=== PATIENT | male | born 1945 | race Caucasian/White ===

== ENCOUNTER 2017-03-01 13:03 | Emergency (ER) | payer MEDICARE, OTHER ==
[2017-03-01 14:19] LABS: BASOPHILS 0.3 % (0.0-2.0); EOSINOPHILS 1.7 % (0-7); HEMATOCRIT 44.6 % (42.0-54.0); IMMATURE GRANULOCYTES 0.3 % (0-5); LYMPHOCYTES 28.7 % (15-50); MCH 30.2 pg (26.0-34.0); MCHC 33.6 g/dL (31.0-37.0); MCV 89.7 fL (80.0-100.0); MEAN PLATELET VOLUME 11.5 fL (7.4-10.4); MONOCYTES 9.7 % (2-11); NEUTROPHILS 59.3 % (40-80); PLATELET COUNT 122 10x3/uL (130-400); RBC 4.97 10x6/uL (4.20-6.10); RDW 12.8 % (11.5-14.5); WBC 8.8 10x3/uL (4.8-10.8)
[2017-03-01 14:31] LABS: INR 1.42 (0.85-1.17); PROTIME 17.2 SECONDS (11.6-15.0)
[2017-03-01 14:32] LABS: APTT 34.1 SECONDS (22.8-39.4)
[2017-03-01 14:41] LABS: ALBUMIN 4.6 g/dL (3.4-5.0); ANION GAP 15.4 mmol/L (8-16); BILIRUBIN - TOTAL 1.2 mg/dL (0.2-1.3); CALCIUM 9.4 mg/dL (8.5-10.1); CARBON DIOXIDE 28.1 mmol/L (21.0-32.0); CREATININE - SERUM 1.3 mg/dL (0.6-1.3); POTASSIUM - SERUM 4.5 mmol/L (3.5-5.1); PROTEIN - SERUM 8.5 g/dL (6.4-8.2)
[2017-03-02] MEDS ORDERED: VOLTAREN100 MG PO (03:02)
[2017-03-02] MEDS ORDERED: COZAAR25 MG PO (03:04)
[2017-03-02] MEDS ORDERED: TOPROL XL100 MG PO (03:05)
[2017-03-02] MEDS ORDERED: OMEPRAZOLE40 MG PO (03:05)
[2017-03-02] MEDS ORDERED: PRAVACHOL20 MG PO (03:06)
[2017-03-02] MEDS ORDERED: REQUIP3 MG PO (03:06)
[2017-03-02] MEDS ORDERED: KLONOPIN1 MG PO (03:08)
[2017-03-02] MEDS ORDERED: ULTRAM50 MG PO (03:08)
[2017-03-02] MEDS ORDERED: CARAFATE1 G PO (03:08)
[2017-03-02] MEDS ORDERED: NIASPAN500 MG PO (03:09)
[2017-03-02] MEDS ORDERED: BAYER CHEWABLE81 MG PO (03:09)
[2017-03-02] MEDS ORDERED: FISH OIL 1,0001 CA1 PO (03:11)
[2017-03-02] MEDS ORDERED: LUPRON IM (03:14)
[2017-03-02 09:45] VITALS: BMI 27.3
== END 2017-03-01 18:17 | disposition home or self-care (01) ==
LOC: D.ER 13:03 → D.ICU 23:27
PROVIDERS: Emergency Medicine
DX: G45.9 Transient cerebral ischemic attack, unspecified (principal)

== ENCOUNTER 2017-03-01 22:09 | Inpatient (IN) | payer MEDICARE, OTHER ==
[~2017-03-01] VITALS: Ht 190.5 cm; Wt 98.7 kg
[2017-03-01 23:37] LABS: INR 0.96 (0.85-1.17); PROTIME 12.7 SECONDS (11.6-15.0)
[2017-03-01 23:50] LABS: CALC OSMOLALITY 278 mosm/kg (275-300); CALCIUM 9.2 mg/dL (8.5-10.1); CARBON DIOXIDE 27.2 mmol/L (21.0-32.0); CHLORIDE - SERUM 102 mmol/L (98-107); CREATINE KINASE 76 UL (21-232); CREATININE - SERUM 1.2 mg/dL (0.6-1.3); GLUCOSE 94 mg/dL (74-106); MAGNESIUM - SERUM 2.2 mg/dL (1.8-2.4); PRO BNP 456 pg/mL (0-125); SODIUM 139 mmol/L (136-145); UREA NITROGEN 15 mg/dL (7-18); eGFR NON AFRICAN AMERICAN 63 mL/min (90-120)
[2017-03-01 23:54] LABS: POTASSIUM - SERUM 3.8 mmol/L (3.5-5.1); TROPONIN-I < 0.017 ng/mL (0.000-0.060)
[2017-03-02] VITALS (51 sets, daily range): BP systolic 131–181; BP diastolic 65–99; Ht 190.5 cm; Wt 98.7 kg
--- NOTE | 2017-03-02 02:20 | NUR ---
PT RECEIVED TO ROOM 2309 FROM ER VIA BED ACCOMPANIED BY HOSPITAL STAFF AND FAMILY. PT ABLE TO TRANSFER SELF TO ICU BED WITH MINIMAL ASSISTANCE. NOTE SMILE SYMETRICAL, TONGUE MIDLINE, MEDICAL BILLER/CODER STRONG AND EQUAL PLANTAR FLEXION AND EXTENSION EQUAL AND STRONG. PT NOTED ONLY TO HAVE DEFICIT IN COMMUNICATION. SPEECH IS CLEAR BUT PATIENT FORGETFUL OF THINGS THAT HE SHOULD BE ABLE TO EASILY RECALL. PT HAVING TROUBLE WITH BOTH SENIOR LIVING AND SHORT TERM MEMORY. UNABLE TO OBTAIN HISTORY FROM PATIENT WHO BECAME FRUSTRATED. HISTORY TAKEN IN LARGE PORTION FROM IN PATIENT'S PRESENCE. PT CONNECTED TO STANDARD ICU MONITORING AND ALL ALARMS SET. PT NOTED TO BE ON A HEPARIN GTT 1000U/HR AND NIPRIDE GTT 0.2MCG/KG/MIN TO A RIGHT FOREARM 20G PIV. ATTEMPTED X 6 BY 3 SEPARATE NURSES TO OBTAIN ANOTHER IV SITE WITHOUT SUCCESS. MEDICATIONS SEPARTATED BY 3 PRONG EXTENSION SET AND WILL SEEK FOR ALTERNATIVE OPTIONS IN THE DAY. WAS TOLD VERBALLY BY SHAWN PEREZ FROM ER THAT DR. MARX HAS BEEN CONSULTED AND DR. ROCHE DID SPEAK WITH HIM. DR. MARX WAS REPORTED TO HAVE ORDERED A HEPARIN BOLUS OF 5,000 UNITS AND THE GTT THAT IS CURRENTLY RUNNING AND WAS INITIATED ON 03/01/17 AT 2345.
[2017-03-02] MEDS ORDERED: VOLTAREN100 MG PO (03:02)
[2017-03-02] MEDS ORDERED: COZAAR25 MG PO (03:04)
[2017-03-02] MEDS ORDERED: TOPROL XL100 MG PO (03:05)
[2017-03-02] MEDS ORDERED: OMEPRAZOLE40 MG PO (03:05)
[2017-03-02] MEDS ORDERED: PRAVACHOL20 MG PO (03:06)
[2017-03-02] MEDS ORDERED: REQUIP3 MG PO (03:06)
[2017-03-02] MEDS ORDERED: ULTRAM50 MG PO (03:08)
[2017-03-02] MEDS ORDERED: CARAFATE1 G PO (03:08)
[2017-03-02] MEDS ORDERED: KLONOPIN1 MG PO (03:08)
[2017-03-02] MEDS ORDERED: NIASPAN500 MG PO (03:09)
[2017-03-02] MEDS ORDERED: BAYER CHEWABLE81 MG PO (03:09)
[2017-03-02] MEDS ORDERED: FISH OIL 1,0001 CA1 PO (03:11)
[2017-03-02] MEDS ORDERED: LUPRON IM (03:14)
--- NOTE | 2017-03-02 04:00 | NUR ---
TITRATING NIPRIDE DOCUMENTED ON IVF FLOWSHEET. PT SLEEPING AT THIS TIME
--- NOTE | 2017-03-02 11:14 | NUR ---
Patient Name: JAYMIE Alvarez OTT Admission Status: ER Accout number: [id number] Admission Date: 03-01-2017 : 1945 Admission Diagnosis: Attending: ILIANA Current LOS: 1 Anticipated DC Date: 03-07-2017 Planned Disposition: Home Primary Insurance: MEDICARE A & B Discharge Planning Comments: CM MET WITH PATIENT REGARDING D/C NEEDS AND PLANS. PATIENT STATED HE LIVES WITH HIS AND SHE WILL DRIVE HIM HOME AT DISCHARGE. PATIENT STATED THERE ARE ABOUT 12-13 STEPS W/RAILS TO ENTER HOME AND NO STAIRS INSIDE. PATIENT STATED HE IS INDEPENDENT WITH HIS CARE AND HAS A CANE, SHOWER BENCH, AND C-PAP AT HOME. PATIENT STATED HE QUIT HIS C-PAP A FEW MONTHS AGO BECAUSE IT WAS BOTHERING HIS NOSE. PATIENTS PCP IS DR. SCOTT AND HE USES [facility] [address] FOR HIS PHARMACY. PATIENT STATED HE HAS NEVER HAD HOME HEALTH AND DOES NOT THINK HE WILL NEED IT AT DISCHARGE. CM WILL CONTINUE TO FOLLOW PATIENT WITH D/C NEEDS AND PLANS. PCP DR. SCOTT [facility] [address] [facility] [phone] TOMMIE () [phone] SURAJ (DAUGHTER) [phone] Process Control Specialist: Ivania Trujillo Is the patient Alert and Oriented? Yes 0 * How many steps to enter\exit or inside your home? 12-13 RAIL 0 * PCP DR. SCOTT 0 * Pharmacy [facility] [address] 0 * Preadmission Environment Home with Family 0 * ADLs Independent 0 * Equipment Cane CPAP Shower Chair 0 * List name and contact numbers for known caregivers / representatives who currently or will assist patient after discharge: TOMMIE () [phone] SURAJ (DAUGHTER) [phone] 0 * Community resources currently utilized None 0 * Additional services required to return to the preadmission environment? Yes 0 * Can the patient safely return to the preadmission environment? Yes 0 * Has this patient been hospitalized within the prior 30 days at any hospital? No 0 Grand Total: 0
--- NOTE | 2017-03-02 19:45 | NUR ---
ASSESSMENT COMPLETE. S1S2. RR CLEAR, EQUAL, BILATERALLY. BP ELEVATED; ON NIPRIDE ORDERS TO TITRATE. SEE EMAR AND ORDERS FOR DETAILS. RT FOREARM PIV; PATENT. ALERT AND ORIENTED. ANSWERS QUESTIONS APPROPRIATELY; OBEYS COMMANDS. RADIAL AND PEDAL PULSES PALPATED. PERRLA. WILL CONTINUE TO MONITOR.
--- NOTE | 2017-03-02 20:10 | NUR ---
DR. HART AT BEDSIDE. UPDATE GIVEN.
--- NOTE | 2017-03-02 21:15 | NUR ---
FAMILY AT BEDSIDE; UPDATE GIVEN. QUESTIONS ANSWERED
--- NOTE | 2017-03-02 21:30 | NUR ---
PT C/O PAIN; HEAD. PRN MORPHINE GIVEN PER ORDERS. SEE EMAR FOR DETAILS.
--- NOTE | 2017-03-02 23:15 | NUR ---
REASSESSMENT COMPLETE. NO CHANGES FROM PREVIOUS ASSESSMENT. WILL CONTINUE TO MONITOR.
[2017-03-03] VITALS (66 sets, daily range): BP systolic 113–187; BP diastolic 70–104
--- NOTE | 2017-03-03 01:30 | NUR ---
PT RESTING; EYES CLOSED. NO DISTRESS NOTED. VSS. CALL LIGHT IN REACH. WILL CONTINUE TO MONITOR.
--- NOTE | 2017-03-03 03:10 | NUR ---
REASSESSMENT COMPLETE. NO CHANGES FROM PREVIOUS ASSESSMENT. CALL LIGHT IN REACH. WILL CONTINUE TO MONITOR. VSS. NO DISTRESS NOTED.
--- NOTE | 2017-03-03 06:28 | NUR ---
FAMILY AT BEDSIDE; UPDATE GIVEN.
--- NOTE | 2017-03-03 08:00 | NUR ---
SHIFT ASSESSMENT VIA FLOWSHEET, SEE FOR DETAILS.
--- NOTE | 2017-03-03 11:00 | NUR ---
REASSESSMENT VIA FLOWSHEET SEE FOR DETAILS.
--- NOTE | 2017-03-03 11:49 | NUR ---
SPOKE WITH KEVIN BAGLEY NEW ORDERS RECEIVED AND STATES SHE WILL REVIEW HOME MED LIST.
--- NOTE | 2017-03-03 12:05 | NUR ---
PT TO CT VIA BED.
[2017-03-03] MEDS ORDERED: MIRALAX17 GM PO (12:45)
[2017-03-03 13:29] LABS: BASOPHILS 0.3 % (0.0-2.0); EOSINOPHILS 1.7 % (0-7); HEMATOCRIT 39.1 % (42.0-54.0); IMMATURE GRANULOCYTES 0.2 % (0-5); LYMPHOCYTES 31.6 % (15-50); MCHC 33.2 g/dL (31.0-37.0); MCV 90.1 fL (80.0-100.0); MEAN PLATELET VOLUME 12.8 fL (7.4-10.4); MONOCYTES 9.1 % (2-11); NEUTROPHILS 57.1 % (40-80); RBC 4.34 10x6/uL (4.20-6.10); RDW 13.1 % (11.5-14.5)
[2017-03-03 13:39] LABS: ALKALINE PHOSPHATASE 36 U/L (46-116); ALT (SGPT) 30 U/L (10-68); BILIRUBIN - TOTAL 0.77 mg/dL (0.2-1.3); CHLORIDE - SERUM 103 mmol/L (98-107); GLUCOSE 138 mg/dL (74-106); POTASSIUM - SERUM 3.9 mmol/L (3.5-5.1); PROTEIN - SERUM 7.2 g/dL (6.4-8.2); SODIUM 138 mmol/L (136-145); eGFR NON AFRICAN AMERICAN 78 mL/min (90-120)
[2017-03-03 13:42] LABS: CALC OSMOLALITY 276 mosm/kg (275-300); UREA NITROGEN 10 mg/dL (7-18)
[2017-03-03 13:43] LABS: PLATELET COUNT 199 10x3/uL (130-400)
--- NOTE | 2017-03-03 15:00 | NUR ---
REASSESSMENT VIA FLOWSHEET, SEE FOR DETAILS.
--- NOTE | 2017-03-03 17:40 | NUR ---
SPOKE WITH SAJAN IN LAB REGARDING PTT DRAW. REQUESTED NEW DRAW BE COMPLETED FROM LEFT ARM VS. RIGHT ARM (WHERE HEPARIN INFUSING) FOR VERIFICATION OF LAB VALUE.
--- NOTE | 2017-03-03 19:15 | NUR ---
SHIFT ASSESSSMENT COMPLETE, A&O X4, ANSWERS QUESTIONS APPROPRIATELY. FOLLOWS COMMANDS, CREEL CLEANER HANDS, EVEN BILATERAL. STRONG SEEING EYE DOG TEACHER, STRENGTH IN ARMS AND LEGS 5/5. PUPILS ARE PERRLA, WILL FOLLOW PEN LIGHT. NO FACIAL DROOPING, NO SENSORY ISSUES. S1S2 NOTED. LUNG SOUNDS CLEAR, RR EVEN AND DEEP. PULSES +2 BILATERAL. VSS, WILL MONITOR.
--- NOTE | 2017-03-03 20:00 | NUR ---
NIGHT MEDS GIVEN WITHOUT DIFFICULTY.
--- NOTE | 2017-03-03 21:00 | NUR ---
FAMILY AT BEDSIDE, DENY NEED AT THIS TIME.
--- NOTE | 2017-03-03 23:00 | NUR ---
REASSESSMENT COMPLETE. NO CHANGES FROM PREVIOUS ASSESSMENT. FACE SYMMETRICAL, STRENGTH 5/5 IN EXTREM. STRONG, EVEN GEAR HOBBER SET UP OPERATOR. CLEAR SPEECH AND IS A&O. VSS, WILL MONITOR.
[2017-03-04] VITALS (14 sets, daily range): BP systolic 126–164; BP diastolic 69–88
--- NOTE | 2017-03-04 01:10 | NUR ---
PATIENT RESTING IN BED WITH EYES CLOSED, VSS.
--- NOTE | 2017-03-04 04:15 | NUR ---
REASSESSMENT COMPLETE PER FLOWSHEET, SEE FOR DETAILS. VSS, DENIES NEED. CL IN REACH.
--- NOTE | 2017-03-04 04:15 | NUR ---
PATIENT STATES HE "IS HAVING A DOWN MOMENT" REQUESTED THAT HIS COME IN IF POSSIBLE. WENT TO WAITING ROOM TO GET AT THIS TIME.
--- NOTE | 2017-03-04 06:19 | NUR ---
FAMILY AT BEDSIDE, LAB DRAWN AT THIS TIME. PT DENIES NEED.
[2017-03-04 06:32] LABS: BASOPHILS 0.4 % (0.0-2.0); EOSINOPHILS 1.2 % (0-7); HEMATOCRIT 41.5 % (42.0-54.0); IMMATURE GRANULOCYTES 0.3 % (0-5); MCHC 33.7 g/dL (31.0-37.0); MCV 89.1 fL (80.0-100.0); MEAN PLATELET VOLUME 11.7 fL (7.4-10.4); MONOCYTES 10.2 % (2-11); NEUTROPHILS 59.9 % (40-80); PLATELET COUNT 221 10x3/uL (130-400); RBC 4.66 10x6/uL (4.20-6.10); RDW 13.1 % (11.5-14.5)
[2017-03-04 06:33] LABS: WBC 11.4 10x3/uL (4.8-10.8)
[2017-03-04 06:57] LABS: ALKALINE PHOSPHATASE 36 U/L (46-116); ALT (SGPT) 34 U/L (10-68); BILIRUBIN - TOTAL 1.04 mg/dL (0.2-1.3); CALC OSMOLALITY 270 mosm/kg (275-300); CALCIUM 9.2 mg/dL (8.5-10.1); CARBON DIOXIDE 23.1 mmol/L (21.0-32.0); CHLORIDE - SERUM 100 mmol/L (98-107); GLUCOSE 140 mg/dL (74-106); POTASSIUM - SERUM 4.1 mmol/L (3.5-5.1); PROTEIN - SERUM 7.8 g/dL (6.4-8.2); SODIUM 135 mmol/L (136-145); UREA NITROGEN 11 mg/dL (7-18); eGFR NON AFRICAN AMERICAN 78 mL/min (90-120)
--- NOTE | 2017-03-04 08:09 | NUR ---
FAMILY IN ROOM VISITING WITH DR MARX AT THIS TIME. UPDATE GIVEN. NO ACUTE DISTRESS NOTED. WILL CONTINUE PLAN OF CARE.
--- NOTE | 2017-03-04 08:13 | NUR ---
UP IN BED EATING BREAKFAST AT THIS TIME. NO ACUTE DISTRESS NOTED. PT ALERT AND ORIENTED. WILL CONTINUE PLAN OF CARE.
--- NOTE | 2017-03-04 10:33 | NUR ---
UP IN BED AWAKE AT THIS TIME VISITING WITH FAMILY. NO ACUTE DISTRESS NOTED. WILL CONTINUE PLAN OF CARE.
[2017-03-04] MEDS ORDERED: ASPIRIN325 MG PO (11:18)
[2017-03-04] MEDS ORDERED: CATAPRES0.1 MG PO (11:21)
--- NOTE | 2017-03-04 12:38 | NUR ---
UP IN BED EATING LUNCH AT THIS TIME AND VISITING WITH FAMILY. NO ACUTE DISTRESS NOTED. NOTED PT HAS ORDER TO BE DISCHARGED IF HE DOES WELL WITH PHYSICAL THERAPY. PT AND PTS AWARE. WILL CONTINUE PLAN OF CARE.
--- NOTE | 2017-03-04 13:36 | NUR ---
WALKING IN HALLWAY WITH CANE ASSIST FROM PHYSICAL THERAPY. NO ACUTE DISTRESS NOTED. WILL CONTINUE PLAN OF CARE.
--- NOTE | 2017-03-04 14:19 | NUR ---
NOTED PT TO BE DISCHARGED. SPOKE WITH PHYSICAL THERAPY AND NOTED THEY HAVE OKAYED PT FOR DISCHARGE WELL. PHYSICAL THERAPY WAS ASKED TO EVAL PT BY DR SANDERSON BEFORE DISCHARGE AND IF THEY APPROVE PT THEN PT CAN BE DISCHARGED. CALLED TO PTS PHARMACY AT [facility] AT TO SEE IF THEY HAVE RECVIEVED NEW ORDER FOR ASPIRIN AND CATAPRESS. NOTED PHARMACY STATED THEY HAVE RECIEVED NEW ORDER FOR CATAPRESS BUT HAVE NOT YET RECIEVED ORDER FOR ASPIRIN BUT PT CAN GET MED OVER THE COUNTER IF NEEDED. NO ACUTE DISTRESS NOTED. WILL CONTINUE PLAN OF CARE.
--- NOTE | 2017-03-04 14:46 | NUR ---
NOTED PT ORDER TO BE DISCHARGED TODAY. MEDS HAD BEEN ORDERED THROUGH [facility] MA[facility]IV[facility] LISTED PT PRIMARY PHARMACY. WHEN SPEAKING WITH PT AND PTS ABOUT NEW MEDS SUCH ASPIRIN AND CLONIDINE HCL PT AND PTS STATED CONCERNS THAT THEY WILL NOT RECIEVE ORDER FOR ABOUT TWO WEEKS CONSIDERING THAT THEY USE A MAIL DELIVERY PHARMACY AND REQUESTED FOR THE CLONIDINE HCL TO BE CALLED INTO [facility] [address] AT [phone]. AT THIS TIME CALLED DR SANDERSON TO SEE IF IT WOULD BE OKAY FOR THIS NURSE TO CALL MED IN TO [facility] PER PT AND PTS REQUEST. WAITING FOR CALLBACK. WILL CONTINUE PLAN OF CARE.
--- NOTE | 2017-03-04 15:05 | NUR ---
DR SANDERSON IN HOSPITAL, WROTE SCRIPT FOR CLONIDINE. SCRIPT GIVEN TO PT. NO ACUTE DISTRESS NOTED. WILL CONTINUE PLAN FO CARE.
--- NOTE | 2017-03-04 15:08 | NUR ---
ALL DISCHARGE PAPERWORK SIGNED BY PT. PT DENIES ANY QUESTIONS OR CONCERNS. IS AWARE OF FOLLOWUP APPOINTMENTS AND HOME HEALTH. IVS TO RIGHT FOREARM AND LEFT WRIST DC AT THIS TIME, CATHETER TIP IN TACT. WILL CONTINUE PLAN OF CARE.
--- NOTE | 2017-03-04 15:21 | NUR ---
DISCHARGED AT THIS TIME. LEFT HOSPITAL VIA PERSONAL VEHICLE WITH VIA WHEELCHAIR ACCOMPANIED BY NURSING STAFF. LEFT WITH ALLL PERSONAL ITEMS, DISCHARGE PAPERWORK, SCRIPT. NO ACUTE DISTRESS NOTED. NO FURTHER ACTIONS.
--- NOTE | 2017-03-11 12:24 | EC ---
PATIENT:JAYMIE OTT DATE OF SERVICE: 03/01/17 SEX: M MEDICAL RECORD: [id number] DATE OF : [birth year] LOCATION:[facility] D230 AGE OF PATIENT: 72 ADMISSION DATE: 03/01/17 REFERRING PHYSICIAN: INTERPRETING PHYSICIAN: THOM HORN M.D. ECHOCARDIOGRAM REPORT ECHO CHARGES 4 ECHO COMPLETE CLINICAL DIAGNOSIS: CVA/LEFT MCA TIA ECHOCARDIOGRAPHIC MEASUREMENTS (adult normal given) AC root (d.<3.7cm) 2.8 LV Septum d (<1.2 cm> 1.7 Valve Excursion 1.5 LV Septum (systole) 2.0 Left Atria (s.<4.0cm> 3.5 LVPW d(<1.2cm) 1.5 RV (d.<2.3cm) 2.6 LVPW (sytole) 2.4 LV diastole(<5.6CM) 5.4 MV E-F(>70mm/sec) LV systole 3.0 LVOT Diameter 1.8 MV exc.(>10mm) Est.ejection fraction (50-75%) Pericardial Effusion N DOPPLER: LVIT A 95.0 E 71.0 LA RVSP 28.4 LVOT 154 AOP1/2T Asc. Ao 223 RVOT 110 RA PA 151 AV Gradient Peak 20.0 AV Mean 10.3 AV Area 1.5 MV Gradient Peak 10.4 MV Mean 2.7 MV Area COMMENTS: Waiter/Waitress Cafeteria: Yumiko MANRIQUEZOE Shove Up:Brandon Horn TAPE# PACS DATE OF SERVICE: 03/02/2017 REFERRING PHYSICIAN: Teresita Galicia MD INDICATION: CVA. DESCRIPTION: Left ventricle demonstrates left ventricular hypertrophy. No wall motion abnormalities are seen. Estimated ejection fraction is 60%. There is no evidence of any massive thrombus left ventricle apex. Mitral valve is structurally normal. There is trivial regurgitation seen. Left atrium is ECHOCARDIOGRAM REPORT [id number] JAYMIE OTT normal size. The aortic valve is trileaflet. Leaflets are thickened. Peak gradient across the valve is 20 mmHg with a mean of 10 mmHg. There is no evidence of insufficiency. Right ventricle is mildly dilated. Tricuspid valve is structurally normal. There is trivial regurgitation seen. Right atrium is normal size. There is no pericardial effusion noted. IMPRESSION: 1. Left ventricular hypertrophy with preserved ejection of 60%. 2. Trivial mitral regurgitation. 3. Mild aortic stenosis. 4. No evidence of atrial septal defect, ventricular septal defect or patent foramen ovale. TRANSINT:[id number] Voice Confirmation ID: [id number] DOCUMENT ID: [id number] THOM HORN M.D. at 1224 CC: [id number] DICTATION DATE: 03/02/17 1632 PUBLIC ADMINISTRATION TEACHER: 03/03/17 0040 DIS IN 03/04/17 [place] [id number] [place] [id number]
== END 2017-03-04 15:31 | disposition home or self-care (01) | DRG 69 ==
LOC: D.ER 22:09 → D.ICU 23:27
PROVIDERS: Emergency Medicine; ADMIT Family Medicine
DX: G45.9 Transient cerebral ischemic attack, unspecified (principal); I10 Essential (primary) hypertension; E78.5 Hyperlipidemia, unspecified; K21.9 Gastro-esophageal reflux disease without esophagitis; R40.2143 Coma scale, eyes open, spontaneous, at hospital admission; R40.2363 Coma scale, best motor response, obeys commands, at hospital admission; R40.2253 Coma scale, best verbal response, oriented, at hospital admission; Z87.891 Personal history of nicotine dependence; C61 Malignant neoplasm of prostate; R51 Headache

== ENCOUNTER 2017-04-02 11:38 | Inpatient (IN) | payer MEDICARE, OTHER ==
[~2017-04-02] VITALS: Ht 190.5 cm; Wt 81.8 kg
[~2017-04-02 11:38] MED LIST: ASPIRIN325 MG PO; BAYER CHEWABLE81 MG PO; CARAFATE1 G PO; CATAPRES0.1 MG PO; COZAAR25 MG PO; FISH OIL 1,0001 CA1 PO; KLONOPIN1 MG PO; LUPRON IM; MIRALAX17 GM PO; NIASPAN500 MG PO; OMEPRAZOLE40 MG PO; PRAVACHOL20 MG PO; REQUIP3 MG PO; TOPROL XL100 MG PO; ULTRAM50 MG PO; VOLTAREN100 MG PO
[2017-04-02 12:11] LABS: BASOPHILS 0.4 % (0-2); EOSINOPHILS 3.5 % (0-7); HEMATOCRIT 37.1 % (42.0-54.0); HEMOGLOBIN 12.6 g/dL (13.5-17.5); IMMATURE GRANULOCYTES 0.4 % (0-5); MCH 29.7 pg (26.0-34.0); MCV 87.5 fL (80.0-100.0); MEAN PLATELET VOLUME 10.6 fL (7.4-10.4); MONOCYTES 7.9 % (2-11); NEUTROPHILS 66.8 % (40-80); PLATELET COUNT 202 10x3/uL (130-400); RBC 4.24 10x6/uL (4.20-6.10); RDW 12.6 % (11.5-14.5); WBC 7.3 10x3/uL (4.8-10.8)
[2017-04-02 12:26] LABS: APTT 28.7 SECONDS (22.8-39.4); INR 0.97 (0.85-1.17); PROTIME 12.7 SECONDS (11.6-15.0)
[2017-04-02 12:31] LABS: ALBUMIN 3.8 g/dL (3.4-5.0); ANION GAP 10.9 mmol/L (8-16); BILIRUBIN - TOTAL 0.83 mg/dL (0.2-1.3); CALCIUM 9.1 mg/dL (8.5-10.1); CREATININE - SERUM 1.3 mg/dL (0.6-1.3); POTASSIUM - SERUM 3.9 mmol/L (3.5-5.1); PROTEIN - SERUM 7.4 g/dL (6.4-8.2)
--- NOTE | 2017-04-02 14:19 | NUR ---
RECEIVED TO ROOM 2217 FROM ER. CALL LIGHT IN REACH.
[2017-04-02 14:43] VITALS: BP 170/74
[2017-04-02] MEDS ORDERED: BAYER CHEWABLE81 MG PO (14:48)
[2017-04-02] MEDS ORDERED: PLAVIX75 MG PO (14:51)
[2017-04-02] MEDS ORDERED: CENTRUM SILVER1 TA1 PO (14:52)
--- NOTE | 2017-04-02 14:54 | NUR ---
HISTORY AND MED REC REVIEWED. PASSWORD AND EMERGENCY CONTACT INFO OBTAINED. DR. SESAY AND ALCIRA HAVE ALREADY BEEN IN ROOM TO SEE PATIENT.
--- NOTE | 2017-04-02 15:52 | NUR ---
SPOKE WITH ABOUT BRINGING PATIENT'S DICLOFENAC FROM HOME D/T PHARMACY UNABLE TO OBTAIN IT. VERBALIZED UNDERSTANDING.
[2017-04-02 16:10] LABS: % SATURATION 20 % (15-55); IRON 73 ug/dl (35-150); TOTAL IRON BIND CAPACITY 354 ug/dl (260-445); UNSAT IRON BIND CAPACITY 281 ug/dl (150-375)
--- NOTE | 2017-04-02 16:26 | NUR ---
CARAFATE AND NORVASC PO. WEANED TO ROOM AIR. WILL HAVE OFFICER LIEUTENANT RECHECK VS.
--- NOTE | 2017-04-02 17:50 | NUR ---
TYLENOL PO PER C/O HEADACHE. BP 154/70 MANUALLY. IN ROOM. CALL LIGHT IN REACH.
--- NOTE | 2017-04-02 18:05 | NUR ---
[place] HAT PLACED IN BR FOR STOOL SAMPLE. SCDs TO BLE. IN ROOM. CALL LIGHT IN REACH. WILL CONTINUE WITH PLAN OF CARE.
[2017-04-02 19:02] VITALS: BP 130/82; Ht 190.5 cm; Wt 81.8 kg
[2017-04-02 20:00] VITALS: BP 139/79
--- NOTE | 2017-04-03 03:35 | NUR ---
PT. IN BED WITH HOB UP FOR COMFORT. AWAKENS EASILY I ENTERED ROOM. FEMALE VISITOR STAYING WITH PT, IV HEPARIN IFUSING VIA PUMP WITHOUT ALARMS. NO VOICED COMPLAINTS AND CALL LIGHT IS WITHIN REACH,.
[2017-04-03 04:00] VITALS: BP 169/82
[2017-04-03 05:40] LABS: BASOPHILS 0.8 % (0-2); EOSINOPHILS 4.9 % (0-7); HEMATOCRIT 36.7 % (42.0-54.0); HEMOGLOBIN 12.2 g/dL (13.5-17.5); IMMATURE GRANULOCYTES 0.2 % (0-5); LYMPHOCYTES 33.6 % (15-50); MCH 29.1 pg (26.0-34.0); MCHC 33.2 g/dL (31.0-37.0); MCV 87.6 fL (80.0-100.0); MEAN PLATELET VOLUME 11.2 fL (7.4-10.4); MONOCYTES 11.8 % (2-11); NEUTROPHILS 48.7 % (40-80); PLATELET COUNT 178 10x3/uL (130-400); RBC 4.19 10x6/uL (4.20-6.10); RDW 12.6 % (11.5-14.5); WBC 6.1 10x3/uL (4.8-10.8)
[2017-04-03 06:04] LABS: ALBUMIN 3.5 g/dL (3.4-5.0); ANION GAP 10.7 mmol/L (8-16); BILIRUBIN - TOTAL 0.9 mg/dL (0.2-1.3); CALCIUM 9.2 mg/dL (8.5-10.1); CARBON DIOXIDE 28.9 mmol/L (21.0-32.0); CREATININE - SERUM 1.1 mg/dL (0.6-1.3); POTASSIUM - SERUM 3.6 mmol/L (3.5-5.1); PROTEIN - SERUM 6.9 g/dL (6.4-8.2)
[2017-04-03 07:00] VITALS: BP 172/89
--- NOTE | 2017-04-03 08:14 | NUR ---
CALLED ASKED HIM ABOUT THE PLAVIX SINCE PATIENT IS ON HEPARIN DRIP, HE STATED "DO NOT GIVE IT RIGHT NOW WITH THE DRIP GOING. I WILL ADDRESS IT WHEN I GET THERE."
--- NOTE | 2017-04-03 11:00 | NUR ---
IN ROOM, HE STATED "STOP THE HEPARIN DRIP. GIVE THE PLAVIX, AND I AM GOING TO GO PUT IN A DISCHARGE ORDER." TURNED OFF THE HEPARIN DRIP.
[2017-04-03 11:06] VITALS: BP 153/83
--- NOTE | 2017-04-03 11:25 | NUR ---
PATIENT IS AWAKE, ALERT AND ORIENTED X'S 4. RESPIRATIONS ARE EVEN AND UNLABORED ON ROOM AIR. IS AMBULATING WITH PATIENT IN THE [place]UH[place], PATIENT IS AMBULATING INDEPENDENTLY USING CANE. GAIT STEADY. SPEECH CLEAR.
--- NOTE | 2017-04-03 11:41 | NUR ---
DIAGNOSIS IS SUSPECTED TIA. PATIENT BEING DISDCHARGED BACK HOME. CURRENT DISCHARGE MEDICATIONS INCLUDE PLAVIX & ASPIRIN. NO LDL DRAWN FOR STATIN INDICATOR. WRITTEN INSTRUCTION GIVEN FOR STROKE SYMPTOMS AND DIRECTIN FOR SEEKING MEDICAL ATTN.
--- NOTE | 2017-04-03 12:00 | NUR ---
DISCHARGE INSTRUCTIONS COMPLETED WITH PATIENT AND PATIENT'S . BOTH DENY QUESTIONS AND VERBALIZED UNDERSTANDING. D/C IV FROM LEFT CHEST WITH CATHETER INTACT. HELD PRESSURE UNTIL BLEEDING STOPPED. TOOK PATIENT OUT VIA WHEELCHAIR. STAYED WITH PATIENT UNTIL HE GOT INSIDE 'S VEHICLE.
== END 2017-04-03 12:07 | disposition home or self-care (01) | DRG 69 ==
LOC: D.ER 11:38 → D.MS 13:50
PROVIDERS: Emergency Medicine; ADMIT Family Medicine Adult Medicine
DX: G45.9 Transient cerebral ischemic attack, unspecified (principal); D64.9 Anemia, unspecified; I10 Essential (primary) hypertension; K21.9 Gastro-esophageal reflux disease without esophagitis; Z86.73 Personal history of transient ischemic attack (TIA), and cerebral infarction without residual deficits; G47.30 Sleep apnea, unspecified; R53.1 Weakness

== ENCOUNTER 2017-04-02 13:00 | Outpatient (CLI) | payer MEDICARE, OTHER ==
[2017-04-02] MEDS ORDERED: BAYER CHEWABLE81 MG PO (14:48)
[2017-04-02] MEDS ORDERED: PLAVIX75 MG PO (14:51)
[2017-04-02] MEDS ORDERED: CENTRUM SILVER1 TA1 PO (14:52)
[2017-04-02 19:02] VITALS: BMI 22.5
== END 2017-04-03 18:00 | disposition home or self-care (01) ==
LOC: D.OPS 13:00
DX: G45.9 Transient cerebral ischemic attack, unspecified (principal); I10 Essential (primary) hypertension; K21.9 Gastro-esophageal reflux disease without esophagitis; D64.9 Anemia, unspecified

== ENCOUNTER 2017-05-21 18:16 | Observation (INO) | payer MEDICARE, OTHER ==
[2017-04-02 19:02] VITALS: Wt 99.2 kg
[~2017-05-21 18:16] MED LIST changes: +CENTRUM SILVER1 TA1 PO; +PLAVIX75 MG PO
[2017-05-21 18:48] LABS: BASOPHILS 0.1 % (0-2); EOSINOPHILS 1.4 % (0-7); HEMOGLOBIN 13.1 g/dL (13.5-17.5); IMMATURE GRANULOCYTES 0.4 % (0-5); LYMPHOCYTES 31.4 % (15-50); MCHC 34.5 g/dL (31.0-37.0); MEAN PLATELET VOLUME 11.1 fL (7.4-10.4); MONOCYTES 11.7 % (2-11); PLATELET COUNT 198 10x3/uL (130-400); RBC 4.37 10x6/uL (4.20-6.10); RDW 12.7 % (11.5-14.5); WBC 7.7 10x3/uL (4.8-10.8)
[2017-05-21 19:04] LABS: APTT 28.6 SECONDS (22.8-39.4); INR 0.99 (0.85-1.17); PROTIME 12.9 SECONDS (11.6-15.0)
[2017-05-21 19:09] LABS: ALBUMIN 4.1 g/dL (3.4-5.0); ALKALINE PHOSPHATASE 45 U/L (46-116); ALT (SGPT) 27 U/L (10-68); BILIRUBIN - TOTAL 0.96 mg/dL (0.2-1.3); CALC OSMOLALITY 258 mosm/kg (275-300); CALCIUM 9.8 mg/dL (8.5-10.1); CARBON DIOXIDE 28.8 mmol/L (21.0-32.0); CHLORIDE - SERUM 92 mmol/L (98-107); CREATININE - SERUM 1.3 mg/dL (0.6-1.3); GLUCOSE 125 mg/dL (74-106); POTASSIUM - SERUM 4.3 mmol/L (3.5-5.1); PROTEIN - SERUM 7.9 g/dL (6.4-8.2); SODIUM 128 mmol/L (136-145); UREA NITROGEN 14 mg/dL (7-18); eGFR NON AFRICAN AMERICAN 58 mL/min (90-120)
[2017-05-21 19:22] LABS: TROPONIN-I < 0.017 ng/mL (0.000-0.060)
--- NOTE | 2017-05-21 22:25 | NUR ---
PT ARRIVED TO FLOOR VIA STREACHER WITH STAFF AND SPOUSE. IV TO LEFT WRIST SALINE LOCKED. PT ASSISTED WITH MOVING TO BED. PT IS TRING TO ASK QUESTIONS BUT UNABLE TO GET APPROIATE WORDS TO COME OUT, SO GETTING A LITTLE UPSET. B/P 215/73 TOLD WILL GIVE HIM A LITTLE TIME AND RETAKE SINCE IT COULD BE BECAUSE OF BEING UPSET. DID PT HISTORY WITH . GOT CHAIR FOR TO STAY IN ROOM. WILL CONT TO MONITOR.
--- NOTE | 2017-05-21 23:15 | NUR ---
PT C/O BAD HEADACHE. WAS REPORTED TO HAVE GOTTEN TYLENOL IN ER AT 2044. NOTIFIED HOUSE SUPERVISIOR THAT INCREASE B/P AND HEADACH WITH NO PRN MEDS
[2017-05-22] VITALS (7 sets, daily range): BP systolic 150–179; BP diastolic 65–87
--- NOTE | 2017-05-22 00:30 | NUR ---
B/P 167/65 STILL C/O A HEADACHE BUT NOT BAD. WILL MONITOR.
--- NOTE | 2017-05-22 03:15 | NUR ---
PT C/O BAD HEADACHE HOUSE SUPERVISIOR TALKED TO ER DR AND ORDER OBTAINED FOR PERCOCERT . GAVE 1 TAB TO PT. AT BEDSIDE.
--- NOTE | 2017-05-22 07:45 | NUR ---
INTRODUCED MYSELF TO PT PRIMARY RN FOR TODAYS SHIFT. PT IS A&O RESTING IN BED WITH HIS AT BEDSIDE. SHIFT ASSESSMENT COMPLETED. PT DENIES ANY CHEST PAIN OR HEART ISSUES BUT HE DID STATE ITS HARD TO FORM WHAT HE IS TRYING TO SAY SOMETIMES. THIS IS NEW ONSET WITHIN THE PAST COUPLE DAYS HOWEVER PT HAS BEEN SEEING HIS PCP AND STATED THAT THEY ARE THINKING ITS MIGRAINE SYNDROME AND NOT A TIA, ALL CARDIAC ENZYMES NEGATIVE. BP HAS BEEN HYPERTENSIVE BUT PT IS ON MEDS FOR IT. PT STILL HAS A BAD JOSE CURRENTLY BUT WILL BE PROVIDED WITH PRN PAIN PILL AT 9. UA NEEDED AND PT VERBALIZED UNDERSTANDING AND WILL GET ME THE SAMPLE WHEN AVAILABLE. CL IN REACH, BED IN LOWEST, SIDE RAILS X2. NO FURTHER NEEDS AT THIS TIME, WILL ALLOW PT TO TRY AND REST.
--- NOTE | 2017-05-22 08:00 | NUR ---
SCDS APPLIED BILATERALLY AND TEACHING PROVIDED FOR REASONING/PURPOSES.
[2017-05-22] MEDS ORDERED: HYDROCHLOROTH12.5 M1 PO (09:09)
[2017-05-22] MEDS ORDERED: TOPAMAX25 MG PO (09:10)
[2017-05-22] MEDS ORDERED: BUTALBITAL-ASP-1 CAP PO (09:12)
[2017-05-22 10:57] LABS: APPEARANCE CLEAR (CLEAR); COLOR YELLOW (YELLOW)
--- NOTE | 2017-05-22 10:57 | NUR ---
COLLECTED URINE SPECIMEN AND SENT IT TO LAB. PT RESTING QUIETLY IN BED AND DENIES ANY FURTHER NEEDS AT THIS TIME. CL IN REACH, BED IN LOWEST, SIDE RAILS X2. WILL CTM.
[2017-05-22 10:58] LABS: BILIRUBIN NEGATIVE (NEGATIVE); GLUCOSE NEGATIVE (NEGATIVE); KETONE NEGATIVE (NEGATIVE); LEUKOCYTE ESTERASE NEGATIVE (NEGATIVE); NITRITE NEGATIVE (NEGATIVE); PROTEIN NEGATIVE (NEGATIVE); UROBILINOGEN NORMAL (NORMAL)
--- NOTE | 2017-05-22 19:44 | NUR ---
RESUMED CARE OF PT, LYING IN BED RESPIRATIONS EVEN AND UNLABORE DON ROOM AIR. 65 SR ON TELEMETRY. LEFT WRIST SALINE LOCKED. FAMILY AT BEDSIDE, PLAN OF CARE DISCUSSED. NO NEEDS VOICED AT THIS TIME. WILL CONTINUE TO MONITOR. SEE NURSE ASSESSMENT.
[2017-05-23 04:00] VITALS: BP 157/72
[2017-05-23 05:10] LABS: BASOPHILS 0.2 % (0-2); EOSINOPHILS 1.8 % (0-7); HEMATOCRIT 39.2 % (42.0-54.0); HEMOGLOBIN 13.4 g/dL (13.5-17.5); IMMATURE GRANULOCYTES 0.2 % (0-5); MCH 29.3 pg (26.0-34.0); MCHC 34.2 g/dL (31.0-37.0); MCV 85.6 fL (80.0-100.0); MEAN PLATELET VOLUME 11.5 fL (7.4-10.4); MONOCYTES 12.7 % (2-11); NEUTROPHILS 62.1 % (40-80); PLATELET COUNT 218 10x3/uL (130-400); RBC 4.58 10x6/uL (4.20-6.10); RDW 12.7 % (11.5-14.5); WBC 8.4 10x3/uL (4.8-10.8)
[2017-05-23 05:27] LABS: ANION GAP 14.3 mmol/L (8-16); CALCIUM 9.3 mg/dL (8.5-10.1); CARBON DIOXIDE 24.4 mmol/L (21.0-32.0); CREATININE - SERUM 1.1 mg/dL (0.6-1.3); POTASSIUM - SERUM 3.7 mmol/L (3.5-5.1)
[2017-05-23 08:22] VITALS: BP 138/72
[2017-05-23 12:19] VITALS: BP 142/62
[2017-05-23] MEDS ORDERED: NORVASC5 MG PO (15:41)
--- NOTE | 2017-05-23 17:36 | NUR ---
SALINE LOCK REMOVED WITH CATH TIP INTACT. VERBAL AND WRITTEN DISCHARGE INSTRUCTIONS GIVEN TO PATIENT AND .
--- NOTE | 2017-05-23 17:49 | NUR ---
ESCORT OUT VIA WHEELCHAIR. REMAINS FREE FROM INJURY.
== END 2017-05-23 17:51 | disposition home or self-care (01) ==
LOC: D.ER 18:16 → OBSVTIME 21:03 → D.M2 21:03
PROVIDERS: Emergency Medicine; ADMIT Family Medicine
DX: G45.9 Transient cerebral ischemic attack, unspecified (principal); Z86.73 Personal history of transient ischemic attack (TIA), and cerebral infarction without residual deficits; I16.0 Hypertensive urgency; I10 Essential (primary) hypertension; E87.1 Hypo-osmolality and hyponatremia; G25.81 Restless legs syndrome; K21.9 Gastro-esophageal reflux disease without esophagitis; G47.30 Sleep apnea, unspecified

== ENCOUNTER → 2017-09-26 07:22 | Outpatient (CLI) | payer MEDICARE, OTHER ==
[~2017-09-26 07:22] MED LIST changes: +BUTALBITAL-ASP-1 CAP PO; +HYDROCHLOROTH12.5 M1 PO; +NORVASC5 MG PO; +TOPAMAX25 MG PO
== END | disposition home or self-care (01) ==
LOC: D.OPS 07:22 → D.RAD 08:00 → D.OPS 08:00
DX: M46.1 Sacroiliitis, not elsewhere classified (principal)

== ENCOUNTER → 2018-01-23 12:01 | Outpatient (CLI) | payer MEDICARE, OTHER | END | disposition home or self-care (01) | LOC: D.OPS 12:01 → D.RAD 13:00 | DX: M46.1 Sacroiliitis, not elsewhere classified (principal) ==

== ENCOUNTER → 2018-05-25 13:33 | Outpatient (CLI) | payer MEDICARE, OTHER | END | disposition home or self-care (01) | LOC: D.SP 13:00 | DX: M53.3 Sacrococcygeal disorders, not elsewhere classified (principal); Z01.812 Encounter for preprocedural laboratory examination ==

== ENCOUNTER 2019-03-28 14:12 | Observation (INO) | payer MEDICARE, OTHER ==
[~2019-03-28] VITALS: Ht 190.5 cm; Wt 110.8 kg
--- NOTE | ~2019-03-28 | EC ---
PATIENT:JAYMIE OTT DATE OF SERVICE: 03/28/19 SEX: M MEDICAL RECORD: [id number] DATE OF : 45 LOCATION:D.M2 D.210 AGE OF PATIENT: 74 ADMISSION DATE: 03/28/19 REFERRING PHYSICIAN: INTERPRETING PHYSICIAN: ALEXIS CHAMBERLAIN MD ECHOCARDIOGRAM REPORT ECHO CHARGES 4 ECHO COMPLETE Date: 03/29/19 CLINICAL DIAGNOSIS: SYNCOPE HX OF PACEMAKER ECHOCARDIOGRAPHIC MEASUREMENTS (adult normal given) AC root (d.<3.7cm) 3.1 cm LV Septum d (<1.2 cm> 1.6 cm Valve Excursion 1.7 cm LV Septum (systole) 1.7 cm Left Atria (s.<4.0cm> 3.5 cm LVPW d(<1.2cm) 1.6 cm RV (d.<2.3cm) 4.0 cm LVPW (sytole) 1.7 cm LV diastole(<5.6CM) 4.9 cm MV E-F(>70mm/sec) cm LV systole 3.3 cm LVOT Diameter 1.6 cm MV exc.(>10mm) 1.0 cm Est.ejection fraction (50-75%) % DOPPLER: LVIT cm/sec A 95.0 cm/sec E 87.0 cm/sec LA cm/sec RVSP 35 mmHg LVOT 85 cm/sec AOP1/2T m/s Asc. Ao 159 cm/sec RVOT 76 cm/sec RA cm/sec PA 126 cm/sec AV Gradient Peak 10.17mmHg AV Mean 5.77 mmHg AV Area 1.0 cm MV Gradient Peak 5.60 mmHg MV Mean 2.41 mmHg MV Area cm COMMENTS: Chip Mixing Machine Operator: 2 DENNIS NOBLE Mastic Worker: 3 Dr. Beard TAPE# PACS Pericardial Effusion N DATE OF SERVICE: Adequate 2D, color flow, spectral Doppler, and M-Mode. LVH is present. LV internal dimension is normal. Wall motion normal. EF of is greater than or equal to 55%. Aortic valve sclerosis without evidence of stenosis on Doppler interrogation. Left atrium normal at 3.5 cm. Mitral valve shows no prolapse. Trace MR. Right-sided chambers grossly normal. Trace TR. TRANSINT:[id number] Voice Confirmation ID: [id number] DOCUMENT ID: [id number] ECHOCARDIOGRAM REPORT [id number] JAYMIE OTT GREGORY A MD CC: [id number] DICTATION DATE: 03/30/1931 MANAGER INVESTMENT BANKING: 03/30/19 1054 DIS IN 03/29/[address] [facility] [address] [place] [address]
[~2019-03-28 14:12] MED LIST changes: -BUTALBITAL-ASP-1 CAP PO; +CENTRUM COMPLE1 EACH PO; -CENTRUM SILVER1 TA1 PO; +FIORICET/ESGIC1 TAB PO
[2019-03-28 15:19] LABS: BASOPHILS 0.3 % (0-2); EOSINOPHILS 1.7 % (0-7); HEMATOCRIT 36.8 % (42.0-54.0); HEMOGLOBIN 12.8 g/dL (13.5-17.5); IMMATURE GRANULOCYTES 1.2 % (0-5); LYMPHOCYTES 22.3 % (15-50); MCH 27.4 pg (26.0-34.0); MCHC 34.8 g/dL (31.0-37.0); MCV 78.6 fL (80.0-100.0); MEAN PLATELET VOLUME 11.2 fL (7.4-10.4); MONOCYTES 10.8 % (2-11); NEUTROPHILS 63.7 % (40-80); RBC 4.68 10x6/uL (4.20-6.10); RDW 14.3 % (11.5-14.5); WBC 9.3 10x3/uL (4.8-10.8)
[2019-03-28 15:30] VITALS: BP 153/84
[2019-03-28 15:37] LABS: PLATELET COUNT 124 10x3/uL (130-400)
[2019-03-28 15:39] LABS: ALBUMIN 4.1 g/dL (3.4-5.0); ALKALINE PHOSPHATASE 58 U/L (46-116); ALT (SGPT) 245 U/L (10-68); BILIRUBIN - TOTAL 0.69 mg/dL (0.2-1.3); CALC OSMOLALITY 254 mosm/kg (275-300); CALCIUM 9.1 mg/dL (8.5-10.1); CARBON DIOXIDE 22.1 mmol/L (21.0-32.0); CHLORIDE - SERUM 90 mmol/L (98-107); CREATININE - SERUM 1.4 mg/dL (0.6-1.3); GLUCOSE 115 mg/dL (74-106); POTASSIUM - SERUM 3.3 mmol/L (3.5-5.1); PROTEIN - SERUM 7.4 g/dL (6.4-8.2); SODIUM 126 mmol/L (136-145); UREA NITROGEN 14 mg/dL (7-18); eGFR NON AFRICAN AMERICAN 53 mL/min (90-120)
[2019-03-28 15:49] LABS: APTT 24.2 SECONDS (22.8-39.4); INR 1.6 (0.85-1.17); PROTIME 18.4 SECONDS (11.6-15.0)
[2019-03-28 15:51] LABS: CKMB 0.7 U/L (0.0-3.6); CREATINE KINASE 82 UL (21-232); MAGNESIUM - SERUM 2.1 mg/dL (1.8-2.4)
[2019-03-28 15:52] LABS: TROPONIN-I < 0.017 ng/mL (0.000-0.060)
[2019-03-28 16:17] VITALS: BP 181/84
[2019-03-28 16:52] VITALS: BP 176/80
[2019-03-28 17:45] VITALS: BP 183/85
[2019-03-28 19:01] LABS: APPEARANCE CLEAR (CLEAR); BILIRUBIN NEGATIVE (NEGATIVE); COLOR YELLOW (YELLOW); GLUCOSE NEGATIVE (NEGATIVE); KETONE NEGATIVE (NEGATIVE); NITRITE NEGATIVE (NEGATIVE); PROTEIN NEGATIVE (NEGATIVE); SPECIFIC GRAVITY 1.015 (1.005-1.020); UROBILINOGEN NORMAL (NORMAL)
--- NOTE | 2019-03-28 19:10 | NUR ---
REPORT TO CHRIS BROWN BY SBAR FORMAT
--- NOTE | 2019-03-28 19:20 | NUR ---
REPROT RECIVED FROM CHRIS BOLAND. PT IN ROOM WITH FAMILY. DENIES PAIN OR NEEDS. NO DISTRESS NOTED.
[2019-03-28 20:00] VITALS: BP 152/79
--- NOTE | 2019-03-28 20:38 | NUR ---
PT ARRIVED VIA STRECTHER BY ER STAFF. FAMILY IS AT BEDSIDE. NO ACUTE S/S OF DISTRESS NOTED. BED IN LOW POSITION WITH CALL LIGHT IN REACH. WILL CONTINUE TO MONITOR PT AND FOLLOW PLAN OF CARE.
[2019-03-28 22:30] LABS: CKMB 0.9 U/L (0.0-3.6); CREATINE KINASE 80 UL (21-232); TROPONIN-I < 0.017 ng/mL (0.000-0.060)
[2019-03-29 02:10] VITALS: BP 152/79; BMI 30.5
[2019-03-29 04:00] VITALS: BP 154/76
[2019-03-29 04:39] LABS: BASOPHILS 0.4 % (0-2); EOSINOPHILS 2.3 % (0-7); HEMATOCRIT 33.8 % (42.0-54.0); HEMOGLOBIN 11.6 g/dL (13.5-17.5); IMMATURE GRANULOCYTES 0.6 % (0-5); LYMPHOCYTES 26.3 % (15-50); MCH 27.1 pg (26.0-34.0); MCHC 34.3 g/dL (31.0-37.0); MEAN PLATELET VOLUME 10.7 fL (7.4-10.4); MONOCYTES 11.4 % (2-11); RBC 4.28 10x6/uL (4.20-6.10); RDW 14.2 % (11.5-14.5); WBC 8.2 10x3/uL (4.8-10.8)
[2019-03-29 04:45] LABS: PLATELET COUNT 200 10x3/uL (130-400)
[2019-03-29 05:19] LABS: CALCIUM 8.5 mg/dL (8.5-10.1); CARBON DIOXIDE 23.4 mmol/L (21.0-32.0); CHLORIDE - SERUM 95 mmol/L (98-107); CKMB 0.8 U/L (0.0-3.6); CREATINE KINASE 75 UL (21-232); CREATININE - SERUM 1.1 mg/dL (0.6-1.3); GLUCOSE 113 mg/dL (74-106); MAGNESIUM - SERUM 2.1 mg/dL (1.8-2.4); SODIUM 131 mmol/L (136-145); eGFR NON AFRICAN AMERICAN 69 mL/min (90-120)
[2019-03-29 05:22] LABS: CALC OSMOLALITY 262 mosm/kg (275-300); UREA NITROGEN 9 mg/dL (7-18)
[2019-03-29 05:23] LABS: POTASSIUM - SERUM 2.9 mmol/L (3.5-5.1); TROPONIN-I < 0.017 ng/mL (0.000-0.060)
--- NOTE | 2019-03-29 07:52 | NUR ---
PT HAD A CRITICAL POTASSIUM OF 2.9. I BAG OF POTASSIUM 10/MEQ GIVEN IV AT 0541. THIS WAS REPORTED TO DAY SHIFT TO CONTINUE PROTOCOL.
[2019-03-29] MEDS ORDERED: TAPAZOLE 5 MG TA5 MG PO (08:07)
[2019-03-29] MEDS ORDERED: CARAFATE1 G PO ×2 (08:09→12:42)
[2019-03-29] MEDS ORDERED: KLONOPIN1 MG PO (08:11)
[2019-03-29] MEDS ORDERED: XARELTO10 MG PO (08:11)
[2019-03-29 08:15] VITALS: BP 185/71
--- NOTE | 2019-03-29 08:36 | NUR ---
RESUMING PT CARE, PT IS AWAKE, A&O X4, SPOUSE IS AT BEDSIDE. RUBEN GUTIÉRREZ AT BEDSIDE, GAVE NEW ORDERS FOR TSH, FREE T4 AND TO RESTART HOME MED OF TAPAZOLE 5 MG QD. SPOUSE WILL GIVE THIS MORNINGS DOSE. CALL LIGHT IN REACH, WILL CONTINUE TO MONITOR AND FOLLOW PLAN OF CARE.
[2019-03-29 08:44] VITALS: Ht 190.5 cm; Wt 110.8 kg
[2019-03-29 09:05] LABS: T4 THYROXIN - FREE 1.46 ng/dL (0.76-1.46); THYROID STIMULATING HORMONE 1.42 uIU/mL (0.36-3.74)
--- NOTE | 2019-03-29 09:15 | NUR ---
URINE SENT TO THE LAB.
[2019-03-29] MEDS ORDERED: COZAAR50 MG PO (12:41)
[2019-03-29] MEDS ORDERED: BETAPACE 80 MG80 MG PO (12:48)
[2019-03-29 13:09] VITALS: BP 177/78
[2019-03-29 15:18] VITALS: BP 146/66
[2019-03-29 15:53] LABS: ANION GAP 18.2 mmol/L (8-16); CALCIUM 8.6 mg/dL (8.5-10.1); CARBON DIOXIDE 19.2 mmol/L (21.0-32.0); CREATININE - SERUM 1.2 mg/dL (0.6-1.3); POTASSIUM - SERUM 4.4 mmol/L (3.5-5.1)
--- NOTE | 2019-03-29 16:26 | NUR ---
RE-CHECK OF K IS 4.4, PER ALCIRA ALLRED APRN, PT MAY GO HOME AND SHE WILL PUT IN THE D/C ORDERS. PT AND FAMILY NOTIFIED, WILL CONTINUE TO MONITOR.
--- NOTE | 2019-03-29 17:22 | NUR ---
D/C INSTRUCTIONS GIVEN TO PT AND FAMILY, IV REMOVED. TAKEN TO CAR VIA WHEELCHAIR.
--- NOTE | 2019-03-30 08:06 | MORECARE ---
CASE MANAGEMENT DISCHARGE SUMMARY PATIENT: JAYMIE OTT UNIT: [id number] ADM DATE: 03/28/19 AGE: 74 : 45 SEX: M ROOM/BED: D.2107 AUTHOR: JOSE GENTILE PHYSICIAN: REFERRING PHYSICIAN: MARIVEL SESAY MD DATE OF SERVICE: 03/30/19 Discharge Plan Patient Name: [facility]AYMIE OTT [facility] [facility] 1945 Planned Disposition: Home Anticipated Discharge Date: 03/29/19 Discharge Date: 03/29/2019 Expected LOS: 1 Initial Reviewer: [email or web address] Initial Review Date: 03/30/2019 Generated: 03/30/19 9:05 am Patient Name: JAYMIE OTT Page [id number] at 0806 All edits/amendments must be made on the electronic document DICTATION DATE: 03/30/19804 ENTRY LEVEL PROGRAMMER: DM 03/30/19 08 RPT#: [id number] DC DATE:03/29/19 STATUS: DIS IN [facility] [address] [place] [address] END OF REPORT
== END 2019-03-29 17:23 | disposition home or self-care (01) ==
LOC: D.ER 14:12 → OBSVTIME 17:43 → D.EDHOLD 17:43 → D.M2 19:38
PROVIDERS: Emergency Medicine; Internal Medicine Nephrology; ADMIT Family Medicine Adult Medicine; ATTEND Family Medicine Adult Medicine
DX: R55 Syncope and collapse (principal); Z86.73 Personal history of transient ischemic attack (TIA), and cerebral infarction without residual deficits; I10 Essential (primary) hypertension; G47.33 Obstructive sleep apnea (adult) (pediatric); D50.9 Iron deficiency anemia, unspecified; E87.1 Hypo-osmolality and hyponatremia; E87.6 Hypokalemia; N17.9 Acute kidney failure, unspecified; C61 Malignant neoplasm of prostate; Z95.0 Presence of cardiac pacemaker

== ENCOUNTER 2020-04-21 10:43 | Emergency (ER) | payer MEDICARE, OTHER ==
[~2020-04-21] VITALS: Ht 190.5 cm; Wt 100.9 kg
[~2020-04-21 10:43] MED LIST changes: +BETAPACE 80 MG80 MG PO; +COZAAR50 MG PO; +TAPAZOLE 5 MG TA5 MG PO; +XARELTO10 MG PO
[2020-04-21 11:14] VITALS: Ht 190.5 cm; Wt 100.9 kg
[2020-04-21] MEDS ORDERED: BETAPACE 80 MG80 MG PO (11:16)
[2020-04-21] MEDS ORDERED: ULTRAM50 MG PO (11:16)
[2020-04-21] MEDS ORDERED: PREDNISONE50 MG PO (11:48)
[2020-04-21] MEDS ORDERED: LACRI-LUBE S.O3.5 G1 LEFT EYE (11:48)
[2020-04-21 11:56] LABS: CALC OSMOLALITY 281 mosm/kg (275-300); CALCIUM 9.6 mg/dL (8.5-10.1); CARBON DIOXIDE 25.8 mmol/L (21.0-32.0); CHLORIDE - SERUM 105 mmol/L (98-107); CREATININE - SERUM 1.3 mg/dL (0.6-1.3); GLUCOSE 155 mg/dL (74-106); POTASSIUM - SERUM 3.9 mmol/L (3.5-5.1); SODIUM 139 mmol/L (136-145); UREA NITROGEN 14 mg/dL (7-18); eGFR NON AFRICAN AMERICAN 57 mL/min (90-120)
[2020-04-21 11:57] LABS: APTT 44.1 SECONDS (22.8-39.4); INR 1.32 (0.85-1.17); PROTIME 16.3 SECONDS (11.6-15.0)
[2020-04-21 12:07] LABS: BASOPHILS 0.3 % (0-2); EOSINOPHILS 2.3 % (0-7); HEMATOCRIT 39.5 % (42.0-54.0); HEMOGLOBIN 12.6 g/dL (13.5-17.5); IMMATURE GRANULOCYTES 0.3 % (0-5); LYMPHOCYTES 24.9 % (15-50); MCH 26.4 pg (26.0-34.0); MCHC 31.9 g/dL (31.0-37.0); MCV 82.8 fL (80.0-100.0); MONOCYTES 8.3 % (2-11); NEUTROPHILS 63.9 % (40-80); PLATELET COUNT 214 10x3/uL (130-400); RBC 4.77 10x6/uL (4.20-6.10); RDW 14.9 % (11.5-14.5); WBC 11.6 10x3/uL (4.8-10.8)
[2020-04-21 12:13] LABS: ALBUMIN 3.9 g/dL (3.4-5.0); ALKALINE PHOSPHATASE 74 U/L (30-120); ALT (SGPT) 47 U/L (10-68); BILIRUBIN - TOTAL 0.73 mg/dL (0.2-1.3); CKMB 1.2 U/L (0.0-3.6); CREATINE KINASE 71 UL (21-232); MAGNESIUM - SERUM 2.1 mg/dL (1.8-2.4); PROTEIN - SERUM 8.2 g/dL (6.4-8.2); THYROID STIMULATING HORMONE 0.88 uIU/mL (0.36-3.74); TROPONIN-I < 0.017 ng/mL (0.000-0.060)
[2020-04-21] MEDS ORDERED: VALTREX1000 MG PO (12:34)
[2020-04-21 12:56] VITALS: BP 154/89
== END 2020-04-21 12:57 | disposition home or self-care (01) ==
LOC: D.ER 10:43
PROVIDERS: Family Medicine
DX: G51.0 Bell's palsy (principal); I10 Essential (primary) hypertension; Z95.0 Presence of cardiac pacemaker; K21.9 Gastro-esophageal reflux disease without esophagitis; E03.9 Hypothyroidism, unspecified; Z86.73 Personal history of transient ischemic attack (TIA), and cerebral infarction without residual deficits